=== PATIENT | male | born 1960 | race Caucasian/White ===

== ENCOUNTER 2016-05-13 14:08 | Emergency (ER) | payer MEDICARE ==
[~2016-05-13 14:08] MED LIST: LEVAQUIN750 MG PO
[2016-05-13 16:02] LABS: HEMOGLOBIN 17.6 gm/dl (14.0-17.5); RED BLOOD COUNT 5.9 M/UL (4.20-5.50); WHITE BLOOD COUNT 5.4 K/UL (4.5-11.0)
[2016-05-13 16:22] LABS: BUN/CREATININE RATIO 22 (0-10)
== END 2016-05-13 19:05 | disposition home or self-care (01) ==
LOC: ER1 14:08
PROVIDERS: Nurse Practitioner Family
DX: K57.32 Diverticulitis of large intestine without perforation or abscess without bleeding (principal); K52.9 Noninfective gastroenteritis and colitis, unspecified; J44.9 Chronic obstructive pulmonary disease, unspecified; F17.210 Nicotine dependence, cigarettes, uncomplicated; Z79.899 Other long term (current) drug therapy
CPT/HCPCS: 36415; 80053; 81001; 82150; 83605; 83690; 85025; 87086; 94640; 96374; 96375; 99284; J1335; J2405; J7050; Q9962

== ENCOUNTER 2016-08-01 14:00 | Inpatient (IN) | payer MEDICARE ==
[~2016-08-01] VITALS: Ht 185.4 cm; Wt 79.6 kg
[2016-08-01 15:34] LABS: HEMOGLOBIN 15.6 gm/dl (14.0-17.5); RED BLOOD COUNT 5.25 M/UL (4.20-5.50); WHITE BLOOD COUNT 21.1 K/UL (4.5-11.0)
[2016-08-01 15:53] LABS: BUN/CREATININE RATIO 21 (0-10)
[2016-08-01] MEDS ORDERED: IPRAT-ALBUT 0.5-3 ML INH (22:03)
[2016-08-02 06:44] LABS: HEMOGLOBIN 14.6 gm/dl (14.0-17.5); RED BLOOD COUNT 4.92 M/UL (4.20-5.50)
[2016-08-02 06:58] LABS: BUN/CREATININE RATIO 30 (0-10)
[2016-08-03 06:55] LABS: HEMOGLOBIN 14.2 gm/dl (14.0-17.5); RED BLOOD COUNT 4.77 M/UL (4.20-5.50)
[2016-08-03 06:56] LABS: WHITE BLOOD COUNT 15.2 K/UL (4.5-11.0)
[2016-08-03 07:10] LABS: BUN/CREATININE RATIO 41 (0-10)
[2016-08-03] MEDS ORDERED: DULERA 200 MCG8.8 GM INH (22:04)
[2016-08-04] MEDS ORDERED: TYLENOL 325MG325 MG PO (11:50)
[2016-08-04] MEDS ORDERED: LEVAQUIN500 MG PO (11:51)
== END 2016-08-04 10:38 | disposition home or self-care (01) | DRG 190 ==
LOC: ER1 14:00 → ZEROF 18:12 → MED SURG 4 18:12
PROVIDERS: Specialist/Technologist Athletic Trainer; ADMIT Internal Medicine Infectious Disease
DX: J44.1 Chronic obstructive pulmonary disease with (acute) exacerbation (principal); J96.21 Acute and chronic respiratory failure with hypoxia; J20.9 Acute bronchitis, unspecified; J44.0 Chronic obstructive pulmonary disease with (acute) lower respiratory infection; Z88.8 Allergy status to other drugs, medicaments and biological substances; Z87.891 Personal history of nicotine dependence
CPT/HCPCS: 36415; 36600; 71010; 80048; 80053; 82550; 82553; 82803; 83735; 84484; 85025; 85027; 87040; 87070; 87077; 87205; 93005; 94640; 94664; 99284; J1956; J2930; J7509

== ENCOUNTER 2016-08-07 09:08 | Emergency (ER) | payer MEDICARE ==
[~2016-08-07 09:08] MED LIST changes: +DULERA 200 MCG8.8 GM INH; +IPRAT-ALBUT 0.5-3 ML INH; +LEVAQUIN500 MG PO; +TYLENOL 325MG325 MG PO
[2016-08-07 10:14] LABS: HEMOGLOBIN 15.8 gm/dl (14.0-17.5); RED BLOOD COUNT 5.33 M/UL (4.20-5.50); WHITE BLOOD COUNT 17.6 K/UL (4.5-11.0)
[2016-08-07 10:50] LABS: BUN/CREATININE RATIO 25 (0-10)
[2016-08-07 17:41] LABS: CRYPTOCOCCUS NEOFORMANS/GATTII Not Detected (Negative); CYTOMEGALOVIRUS Not Detected (Negative); ESCHERICHIA COLI K1 Not Detected (Negative); HAEMOPHILUS INFLUENZAE Not Detected (Negative); HERPES SIMPLEX VIRUS 1 Not Detected (Negative); HERPES SIMPLEX VIRUS 2 Not Detected (Negative); HUMAN HERPESVIRUS 6 Not Detected (Negative); HUMAN PARECHOVIRUS Not Detected (Negative); LISTERIA MONOCYTOGENES Not Detected (Negative); NEISERRIA MENINGITIDIS Not Detected (Negative); STREPTOCOCCUS AGALACTIAE Not Detected (Negative); STREPTOCOCCUS PNEUMONIAE Not Detected (Negative); VARICELLA ZOSTER VIRUS Not Detected (Negative)
[2016-08-07 18:03] LABS: GLUCOSE,CSF 76 mg/dL (50-80); TOTAL PROTEIN,CSF 63 mg/dL (20-45)
[2016-08-07 19:49] LABS: ENTEROVIRUS DETECTED (Negative)
== END 2016-08-07 23:59 | disposition short-term general hospital (02) ==
LOC: ER1 09:08 → ZEROF 19:52
PROVIDERS: Specialist/Technologist Athletic Trainer
DX: R51 Headache (principal); J44.9 Chronic obstructive pulmonary disease, unspecified; F17.200 Nicotine dependence, unspecified, uncomplicated; I10 Essential (primary) hypertension; D72.829 Elevated white blood cell count, unspecified; Z88.8 Allergy status to other drugs, medicaments and biological substances
CPT/HCPCS: 36415; 36600; 70450; 71010; 80053; 80307; 81001; 82550; 82553; 82803; 82945; 83874; 84157; 84484; 85025; 87070; 87205; 87483; 89051; 93005; 94640; 94664; 96374; 96375; 99284; G0480; J0133; J0696; J1200; J1885; J2405; J2765; J3370; J7030; J7050

== ENCOUNTER 2016-08-09 23:46 | Inpatient (IN) | payer MEDICARE ==
[~2016-08-09] VITALS: Ht 185.4 cm; Wt 77.1 kg
[2016-08-10 03:35] LABS: HEMOGLOBIN 15.5 gm/dl (14.0-17.5); RED BLOOD COUNT 5.23 M/UL (4.20-5.50); WHITE BLOOD COUNT 17.2 K/UL (4.5-11.0)
[2016-08-10 03:51] LABS: BUN/CREATININE RATIO 24 (0-10)
[2016-08-10] MEDS ORDERED: DOXYCYCLINE HY100 MG PO (16:21)
[2016-08-11 03:49] LABS: HEMOGLOBIN 13.7 gm/dl (14.0-17.5); RED BLOOD COUNT 4.75 M/UL (4.20-5.50)
[2016-08-11 03:57] LABS: WHITE BLOOD COUNT 10.8 K/UL (4.5-11.0)
[2016-08-11 04:13] LABS: BUN/CREATININE RATIO 20 (0-10)
[2016-08-12 04:30] LABS: HEMOGLOBIN 13.6 gm/dl (14.0-17.5); RED BLOOD COUNT 4.65 M/UL (4.20-5.50); WHITE BLOOD COUNT 9.9 K/UL (4.5-11.0)
[2016-08-12 04:51] LABS: BUN/CREATININE RATIO 24 (0-10)
[2016-08-14] MEDS ORDERED: FIORICET TAB1 EA PO (14:22)
[2016-08-14] MEDS ORDERED: ELAVIL 25 MG TA25 MG PO (14:26)
== END 2016-08-14 11:45 | disposition home or self-care (01) | DRG 75 ==
LOC: ER1 23:46 → ZEROF 08-10 12:29 → MED SURG 4 08-10 12:29
PROVIDERS: Emergency Medicine; Physician Assistant Medical; ADMIT Internal Medicine
DX: A87.9 Viral meningitis, unspecified (principal); J44.1 Chronic obstructive pulmonary disease with (acute) exacerbation; J44.0 Chronic obstructive pulmonary disease with (acute) lower respiratory infection; J96.11 Chronic respiratory failure with hypoxia; J44.9 Chronic obstructive pulmonary disease, unspecified; F17.210 Nicotine dependence, cigarettes, uncomplicated; J20.9 Acute bronchitis, unspecified; G97.1 Other reaction to spinal and lumbar puncture; Y84.4 Aspiration of fluid as the cause of abnormal reaction of the patient, or of later complication, without mention of misadventure at the time of the procedure; B97.10 Unspecified enterovirus as the cause of diseases classified elsewhere; Z99.81 Dependence on supplemental oxygen
CPT/HCPCS: 36415; 70450; 71010; 80048; 80053; 81001; 82150; 83690; 83735; 83880; 84484; 85025; 85027; 85610; 85730; 87040; 87086; 93005; 94640; 96361; 96374; 96375; 99285; G0378; J1100; J1200; J1885; J2270; J2405; J2765; J7030; J7050

== ENCOUNTER → 2021-04-22 | Outpatient (CLI) | payer OTHER ==
[~2021-04-22] MED LIST changes: +CEFUROXIME500 MG PO; +DOXYCYCLINE HY100 MG PO; +ELAVIL 25 MG TA25 MG PO; +FIORICET TAB1 EA PO; +FLOXIN 0.3% OTIC5 ML AD; +MEDROL4 MG PO; +PERCOCET 5/325 T1 EA PO; +PREDNISONE 50 M50 MG PO; +PREDNISONE20 MG PO
== END ==
LOC: HEART 5 10:38
DX: R06.02 Shortness of breath (principal); R05.9 Cough, unspecified
CPT/HCPCS: 94060; 94729

== ENCOUNTER 2021-09-29 15:33 | Inpatient (IN) | payer OTHER ==
[~2021-09-29] VITALS: Ht 185.4 cm; Wt 90.7 kg
[2021-09-29 16:13] LABS: HEMOGLOBIN 16.8 gm/dl (14.0-17.5); RED BLOOD COUNT 5.39 M/UL (4.20-5.50); WHITE BLOOD COUNT 15.5 K/UL (4.5-11.0)
[2021-09-29 16:37] LABS: BUN/CREATININE RATIO 19 (0-10)
[2021-09-30 02:55] LABS: HEMOGLOBIN 14.9 gm/dl (14.0-17.5); RED BLOOD COUNT 5.03 M/UL (4.20-5.50); WHITE BLOOD COUNT 13.9 K/UL (4.5-11.0)
[2021-09-30 03:40] LABS: BUN/CREATININE RATIO 29 (0-10)
[2021-09-30] MEDS ORDERED: IPRAT-ALBUT 0.5-3 ML INH (09:49)
[2021-09-30] MEDS ORDERED: DALIRESP500 MCG PO (09:50)
[2021-09-30] MEDS ORDERED: SYMBICORT 160-1 INHA INH (09:50)
[2021-09-30] MEDS ORDERED: PROAIR HFA8.5 GM INH (09:51)
[2021-09-30] MEDS ORDERED: TYLENOL COLD M1 EACH PO (09:51)
[2021-10-01 07:03] LABS: HEMOGLOBIN 15.2 gm/dl (14.0-17.5); WHITE BLOOD COUNT 12.2 K/UL (4.5-11.0)
[2021-10-01 07:42] LABS: BUN/CREATININE RATIO 32 (0-10)
[2021-10-02 06:09] LABS: HEMOGLOBIN 14.6 gm/dl (14.0-17.5); RED BLOOD COUNT 4.81 M/UL (4.20-5.50); WHITE BLOOD COUNT 10.8 K/UL (4.5-11.0)
[2021-10-02 10:25] LABS: BUN/CREATININE RATIO 34 (0-10)
[2021-10-03 07:44] LABS: BUN/CREATININE RATIO 25 (0-10)
[2021-10-03] MEDS ORDERED: IPRAT-ALBUT 0.5-3 ML INH (08:54)
[2021-10-03] MEDS ORDERED: MEDROL DOSEPAK 24 MG PO (08:55)
[2021-10-03] MEDS ORDERED: OMNICEF 300 MG300 MG PO (08:56)
[2021-10-03] MEDS ORDERED: BACLOFEN5 MG PO (09:00)
== END 2021-10-03 11:31 | disposition home or self-care (01) | DRG 205 ==
LOC: ER1 15:33 → CDU 18:41 → M/S 18:41
PROVIDERS: Internal Medicine; Nurse Practitioner; ADMIT Internal Medicine
PROC: B24BZZZ Ultrasonography of Heart with Aorta (ICD-10-PCS; principal; 2021-09-30)
DX: M94.0 Chondrocostal junction syndrome [Tietze] (principal); J96.21 Acute and chronic respiratory failure with hypoxia; J44.1 Chronic obstructive pulmonary disease with (acute) exacerbation; D72.829 Elevated white blood cell count, unspecified; K76.0 Fatty (change of) liver, not elsewhere classified; E78.5 Hyperlipidemia, unspecified; I10 Essential (primary) hypertension; R10.9 Unspecified abdominal pain; Z79.899 Other long term (current) drug therapy; Z87.891 Personal history of nicotine dependence; Z98.890 Other specified postprocedural states
CPT/HCPCS: ECHO; 0241U; 36415; 71045; 71275; 80048; 80053; 80061; 80307; 81001; 82550; 82553; 83605; 83880; 84484; 85025; 85379; 86140; 87040; 87070; 87077; 87186; 87205; 93005; 93306; 94640; 94664; 94760; 94762; 96372; 96374; 96375; 96376; 99285; G0378; J0456; J0696; J1650; J2920; J7030; Q9967

== ENCOUNTER 2021-10-20 11:13 | Emergency (ER) | payer OTHER ==
[~2021-10-20 11:13] MED LIST changes: +BACLOFEN5 MG PO; +DALIRESP500 MCG PO; +MEDROL DOSEPAK 24 MG PO; +OMNICEF 300 MG300 MG PO; +PROAIR HFA8.5 GM INH; +SYMBICORT 160-1 INHA INH; +TYLENOL COLD M1 EACH PO
[2021-10-20 12:16] LABS: HEMOGLOBIN 15.5 gm/dl (14.0-17.5); RED BLOOD COUNT 5.08 M/UL (4.20-5.50); WHITE BLOOD COUNT 5.7 K/UL (4.5-11.0)
[2021-10-20 12:42] LABS: BUN/CREATININE RATIO 21 (0-10)
[2021-10-20] MEDS ORDERED: PAXLOVID 150-11 EACH PO (13:19)
[2021-10-20] MEDS ORDERED: PREDNISONE 50 M50 MG PO (13:19)
[2021-10-20] MEDS ORDERED: ZOFRAN 4 MG TAB4 MG PO (13:19)
== END 2021-10-20 13:51 | disposition home or self-care (01) ==
LOC: ER1 11:13
PROVIDERS: Emergency Medicine
DX: U07.1 COVID-19 (principal); J44.9 Chronic obstructive pulmonary disease, unspecified
CPT/HCPCS: 71045; 80053; 83690; 84439; 84443; 84484; 85025; 93005; 94664; 96374; 96375; 99284; J1885; J2405; U0002

== ENCOUNTER 2021-10-27 19:31 | Emergency (ER) | payer OTHER ==
[~2021-10-27 19:31] MED LIST changes: +PAXLOVID 150-11 EACH PO; +ZOFRAN 4 MG TAB4 MG PO
[2021-10-27 20:28] LABS: HEMOGLOBIN 16.2 gm/dl (14.0-17.5); RED BLOOD COUNT 5.25 M/UL (4.20-5.50); WHITE BLOOD COUNT 10.8 K/UL (4.5-11.0)
[2021-10-27 20:53] LABS: BUN/CREATININE RATIO 26 (0-10)
[2021-10-27] MEDS ORDERED: PREDNISONE50 MG PO (21:29)
[2021-10-28] MEDS ORDERED: REGLAN10 MG PO (05:39)
== END 2021-10-27 22:28 | disposition home or self-care (01) ==
LOC: ER1 19:31
PROVIDERS: Emergency Medicine
DX: U07.1 COVID-19 (principal); J44.9 Chronic obstructive pulmonary disease, unspecified; Z87.891 Personal history of nicotine dependence
CPT/HCPCS: 36600; 71045; 80048; 82803; 83880; 84484; 85025; 93005; 94664; 99284; U0002

== ENCOUNTER 2021-10-28 03:35 | Emergency (ER) | payer OTHER ==
[~2021-10-28 03:35] MED LIST changes: +PREDNISONE50 MG PO
[2021-10-28 04:21] LABS: HEMOGLOBIN 16.2 gm/dl (14.0-17.5); RED BLOOD COUNT 5.22 M/UL (4.20-5.50); WHITE BLOOD COUNT 11.1 K/UL (4.5-11.0)
[2021-10-28 04:46] LABS: BUN/CREATININE RATIO 35 (0-10)
[2021-10-28] MEDS ORDERED: REGLAN10 MG PO (05:39)
== END 2021-10-28 04:50 | disposition home or self-care (01) ==
LOC: ER1 03:35
PROVIDERS: Emergency Medicine
DX: U07.1 COVID-19 (principal); J44.9 Chronic obstructive pulmonary disease, unspecified
CPT/HCPCS: 80053; 83690; 84484; 85025; 85379; 96374; 96375; 99283; J1885; J2765